=== PATIENT | male | born 2000 | race Native Hawaiian/Other Pacific Islander ===

== ENCOUNTER 2023-04-07 19:32 | Observation (INO) | payer OTHER, SELFPAY ==
[~2023-04-07 19:32] MED LIST: Iopamidol-370 76% 500 ML MDV (1 ML CHARGE) ONE
[2023-04-07] MEDS ORDERED: fentaNYL 50 mcg/mL 1 mL Vial ONE (19:36)
[2023-04-07] MEDS ORDERED: Ondansetron PF 4 MG/2 ML Vial ONE (19:37)
[2023-04-07] MEDS ORDERED: CEFAZOLIN 2 GM VIAL ONE (20:25)
[2023-04-07] MEDS ORDERED: Sodium Chloride 0.9% 100 ML ONE (20:26)
[2023-04-07 20:30] LABS: #Eosinphils 0.1 thou/uL (0.0-0.7); #Monocytes 0.6 thou/uL (0.11-0.59); #Neutrophils 3.2 thou/uL (1.40-6.50); %Basophils 0.4 % (0.0-1.0); %Eosinophils 1.6 % (0.0-10.0); %Monocytes 7.3 % (0.0-10.0); %Neutrophils 40.6 % (42.0-75.0); Hematocrit 44.2 % (42.0-52.0); Hemoglobin 15.9 g/dL (14.0-18.0); Mean Corpuscular Hemoglobin 29.8 pg (27.0-31.0); Mean Corpuscular Volume 82.8 fl (78.0-98.0); Mean Platelet Volume 9.1 fL (7.4-10.4); Platelet Count 284 10x3/uL (130-400); RBC Distribution Width 11.6 % (11.5-14.5); Red Blood Cell (RBC) Count 5.34 mill/uL (4.70-6.10); White Blood Cell (WBC) Count 7.9 10x3/uL (4.8-10.8)
[2023-04-07] MEDS ORDERED: LORazepam 2 MG/ML SYR.(CARPUJECT) ONE (20:35)
[2023-04-07 20:44] LABS: INR-International Normal Ratio 1.1; Prothrombin Time 14.4 sec (12.0-14.7)
[2023-04-07 20:45] LABS: PTT 27.8 sec (22.9-36.1)
[2023-04-07 20:47] LABS: Albumin 4.7 g/dL (3.5-5.0)
[2023-04-07 20:49] LABS: Calcium 9.5 mg/dL (7.8-10.44); Chloride 102 mmol/L (98-107); Potassium 3.3 mmol/L (3.5-5.1); Sodium 136 mmol/L (136-145)
[2023-04-07 20:50] LABS: Glucose 133 mg/dL (70-105); Protein, Total 7.7 g/dL (6.0-8.3)
[2023-04-07 20:51] LABS: Anion Gap 16 mmol/L (10-20); Carbon Dioxide 21 mmol/L (22-29)
[2023-04-07 20:52] LABS: Bilirubin, Total 0.4 mg/dL (0.2-1.2)
[2023-04-07 20:53] LABS: Alkaline Phosphatase 96 U/L (40-110); Calc. Creatinine Clearance 0 mL/min (70-130); Estimated GFR 125
[2023-04-07 20:54] LABS: BUN (Urea Nitrogen) 13 mg/dL (8.9-20.6)
[2023-04-07 20:55] LABS: AST (SGOT) 28 U/L (5-34)
[2023-04-07 20:56] LABS: ALT (SGPT) 19 U/L (8-55)
[2023-04-07] MEDS ORDERED: Morphine 4 MG/ML VIAL SLOW IVP PRN (23:10)
[2023-04-07] MEDS ORDERED: Dextrose 50% Abboject 50 ML SYRINGE SLOW IVP PRN (23:10)
[2023-04-07] MEDS ORDERED: traMADol HCl 50 MG TAB PO PRN (23:10)
[2023-04-07] MEDS ORDERED: Ondansetron ODT 4 MG TAB PO PRN (23:10)
[2023-04-07] MEDS ORDERED: Acetaminophen 325 MG TAB PO PRN (23:10)
[2023-04-07] MEDS ORDERED: Glucagon 1 MG/ML KIT IM PRN (23:10)
[2023-04-07] MEDS ORDERED: Dextrose 5% in Water 1,000 ML IV PRN (23:10)
[2023-04-07] MEDS ORDERED: KETAMINE 100 MG/ML (5ML VIAL) ONE (23:22)
[2023-04-08] MEDS: Sodium Chloride 0.9% 1,000 ML IV SCH ×2 (01:10→08:10)
[2023-04-08 01:15] VITALS: BMI 17.4
[2023-04-08] MEDS ORDERED: FLU VACC QS2023-24(6MOS UP)/PF 60 MCG/0.5 ML SYRINGE IM ONE (09:00)
[2023-04-08] MEDS ORDERED: Chlorhexidine Gluconate 15 ML UDCUP SSP SCH ×2 (09:53→21:00)
[2023-04-08 15:23] VITALS: BP 121/79; TEMP 97.6
== END 2023-04-08 16:20 | disposition home or self-care (01) ==
LOC: ERS 19:32 → SURG A 22:55
PROVIDERS: ADMIT Student in an Organized Health Care Education/Training Program; ATTEND Student in an Organized Health Care Education/Training Program
DX: S52.501A Unspecified fracture of the lower end of right radius, initial encounter for closed fracture (principal); S52.611A Displaced fracture of right ulna styloid process, initial encounter for closed fracture; V27.49XA Other motorcycle driver injured in collision with fixed or stationary object in traffic accident, initial encounter
CPT/HCPCS: 36415; 70450; 70486; 71045; 71260; 72125; 74177; 80053; 85025; 85610; 85730; 86850; 86870; 86900; 86901; 86922; 96375; G0378; G0390; J2060; J2270; J2405; J3010; J3490; J7050; Q9967